=== PATIENT | female | born 1970 ===

== ENCOUNTER 2018-01-31 18:26 | Emergency (ER) | payer BC ==
[2018-01-31 18:51] VITALS: TEMP 98.5
[2018-01-31 19:41] LABS: SQUAMOUS EPITHIAL 2 /hpf (0-5); URINE BILIRUBIN NEGATIVE (NEGATIVE); URINE BLOOD NEGATIVE (NEGATIVE); URINE CLARITY Clear (Clear); URINE COLOR Yellow (YELLOW); URINE GLUCOSE (UA) NORMAL (Normal); URINE LEUKOCYTE ESTERASE TRACE Leu/uL (Negative); URINE PROTEIN NEGATIVE (NEGATIVE); URINE UROBILINOGEN NORMAL mg/dL (0.2-1.0)
[2018-01-31 19:43] LABS: HCG,QUALITATIVE URINE NEGATIVE (NEGATIVE)
--- NOTE | 2018-01-31 19:58 | C.PDOC ---
History Of Present Illness 47 yo female come in for evaluation Right sided headache and neck pain gradually developed for past 2 days . Pt reports, " I was very anxious and tense about something 2 days ago and after that i gradually developed Right sided neck pain". Pt reports, " my friend gave me a massage to Right side of neck and it felt better". Otherwise, pt denies worse headache of life, visual changes, focal deficits, fever, chills, dizziness, recent illness, CP, SOB, dyspnea, diaphoresis, palpitation, abd. pain, V/D, UTi sx. Ambulate to Ed for evaluation, not in any apparent distress. Time Seen by Provider: 01/31/18 19:19 Chief Complaint (Nursing): Headache History Per: Patient Past Medical History Reviewed: Historical Data, Nursing Documentation, Vital Signs Vital Signs: Last Vital Signs Temp 98.5 F 01/31/18 18:48 Pulse 72 01/31/18 18:48 Resp 18 01/31/18 18:48 BP 119/80 01/31/18 18:48 Pulse Ox 98 01/31/18 18:48 - Medical History PMH: No Chronic Diseases Denies: Anxiety, CAD, Cardia Arrhythmia, Cardiac Aneurysm, HTN Surgical History: No Surg Hx Family History: States: No Known Family Hx - Social History Hx Tobacco Use: No Hx Alcohol Use: No Hx Substance Use: No - Immunization History Hx Tetanus Toxoid Vaccination: No Hx Influenza Vaccination: No Hx Pneumococcal Vaccination: No Review Of Systems Except As Marked, All Systems Reviewed And Found Negative. Constitutional: Negative for: Fever, Chills Eyes: Negative for: Vision Change ENT: Negative for: Ear Discharge, Nose Discharge, Throat Pain, Throat Swelling Cardiovascular: Negative for: Chest Pain, Palpitations, Edema, Light Headedness Respiratory: Negative for: Cough, Shortness of Breath, Wheezing Gastrointestinal: Negative for: Nausea, Vomiting, Abdominal Pain, Diarrhea Genitourinary: Negative for: Dysuria Musculoskeletal: Positive for: Neck Pain Neurological: Positive for: Headache. Negative for: Weakness, Numbness, Altered Mental Status, Dizziness Physical Exam - Physical Exam Appears: Well, Non-toxic, No Acute Distress Skin: Normal Color, Warm, Dry, No Rash Head: Atraumatic, Normacephalic Eye(s): bilateral: PERRL, EOMI Ear(s): Bilateral: Normal Nose: No Flaring, No Discharge Oral Mucosa: Moist, No Drooling Tongue: Normal Appearing Lips: Normal Appearing Throat: No Erythema, No Drooling Neck: Trachea Midline, No Midline Cervical Tenderness, No Step Off Deformity, Supple, Other (diffuse Right sided lateral cervical tenderness from occipital area extend down to Right upper back with mod muscle spasm. No midline tendreness, no skin changes.) Cardiovascular: Rhythm Regular, No Murmur, No JVD, Other ((-) carotid bruits B/L) Respiratory: No Decreased Breath Sounds, No Accessory Muscle Use, No Rales, No Rhonchi, No Stridor, No Wheezing Gastrointestinal/Abdominal: Soft, No Tenderness, No Distention, No Guarding Back: No CVA Tenderness, No Vertebral Tenderness, No Paraspinal Tenderness Extremity: Normal ROM, No Pedal Edema, No Deformity, No Swelling Neurological/Psych: Oriented x3, Normal Speech, Normal Motor, Normal Sensation, Normal Reflexes ED Course And Treatment O2 Sat by Pulse Oximetry: 98 Pulse Ox Interpretation: Normal - Other Rad C-spine X-Ray: Interpreted by Me, Viewed By Me Interpretation: (-) acute fx or sublux Progress Note: On re-eval, pt is non-toxic, not in any apparent distress. Afebrile, hemodynamicaly stable. PulsEOx 98% RA. head: AT/NC. ENT: no acute findings. Neck: Supple, (-) JVD, (-) carotid bruits B/L, (-) meningeal sign. Lungs: CTA B/L, BS equal B/L. CVS: (+)S1S2, reg, (-) murmur. Abd: benign, (-) guarding, (-) rebound. Neurologicaly intact. C-spine review and appears without acute abnormalities. Pt has clinical findings c/w Right sided cervical strain, headache. Pt advised. Ref. to f/u with PMD, Neuorlogist in 1-2 days for re-eavl. return to ED if any worsening or new changes. Disposition Counseled Patient/Family Regarding: Studies Performed, Diagnosis, Need For Followup, Rx Given - Disposition Referrals: [facility] [Outside] Disposition: HOME/ ROUTINE Disposition Time: 19:57 Condition: STABLE Additional Instructions: take pain medication as prescribed Follow up with PMD in 2-3 days for re-evaluation. return to ED if any worsening or new changes. Prescriptions: Gabapentin [Neurontin] 300 mg PO Q12 #10 cap Ibuprofen [Motrin Tab] 600 mg PO BID #14 tab Instructions: Cervical Muscle Strain, Tension Headache (DC) Forms: [facility] (Lux[place]ish), Work Excuse Print Language: AZERI - Clinical Impression Clinical Impression: Cervical strain, Headache
[2018-01-31 20:36] VITALS: BP 132/72; PULSE 78; RESP 16
[2018-01-31 21:29] VITALS: O2SAT 98
--- NOTE | 2018-02-01 09:15 | RAD ---
Date of service: 01/31/2018 PROCEDURE: Cervical Spine Radiographs. HISTORY: Pain. COMPARISON: None. FINDINGS: BONES: Alignment maintained. No fracture. Dens Intact. DISC SPACES: Normal. SOFT TISSUES: Normal. No prevertebral soft tissue swelling. OTHER FINDINGS: None. IMPRESSION: Normal cervical spine radiographs
== END 2018-01-31 20:34 | disposition home or self-care (01) ==
LOC: C.ER 18:26
DX: S16.1XXA Strain of muscle, fascia and tendon at neck level, initial encounter (principal); X58.XXXA Exposure to other specified factors, initial encounter; R51 Headache